=== PATIENT | female | born 1955 | race Two or more races ===

== ENCOUNTER 2023-12-24 15:31 | Emergency (ER) | payer OTHER ==
[~2023-12-24] VITALS: Ht 167.6 cm; Wt 102.9 kg
[2023-12-24 16:02] VITALS: TEMP 97.9
[2023-12-24] MEDS ORDERED: 0.9% SODIUM CHLORIDE 10 ML SYRINGE IVP ONE (16:06)
[2023-12-24] MEDS ORDERED: IOHEXOL 350 MG/ML 100 ML VIAL ONE (16:07)
[2023-12-24] MEDS ORDERED: SODIUM CHLORIDE 0.9% 100 ML ONE (16:07)
[2023-12-24 16:09] LABS: BASOPHILS % (AUTO) 0.3 % (0.0-2.0); EOSINOPHILS % (AUTO) 0.8 % (1.0-6.0); HEMATOCRIT 37.2 % (36-46); HEMOGLOBIN 11.5 g/dL (12.0-16.0); LYMPHOCYTES # (AUTO) 2.4 K/uL (1.0-4.8); LYMPHOCYTES % (AUTO) 24.2 % (22.0-44.0); MEAN CORPUSCULAR HGB CONC 30.9 G/dL (31.0-37.0); MEAN CORPUSCULAR VOLUME 78 fL (80-100); MONOCYTES # (AUTO) 0.6 K/uL (0.1-1.0); MONOCYTES % (AUTO) 6.2 % (2.0-9.0); NEUTROPHILS # (AUTO) 6.7 K/uL (1.8-7.7); NEUTROPHILS % (AUTO) 68.5 % (40.0-70.0); PLATELET COUNT (AUTO) 380 K/uL (150-450); RED BLOOD CELL COUNT(AUTO) 4.79 MIL/uL (4.00-5.20); RED CELL DISTRIBUTION WIDTH 16.5 % (11.5-14.5); WHITE BLOOD COUNT (AUTO) 9.8 K/uL (4.5-11.0)
[2023-12-24 16:16] LABS: CREATININE 0.99 mg/dL (0.60-1.30); POTASSIUM 4.1 mmol/L (3.5-5.1)
[2023-12-24 16:20] LABS: PROTHROMBIN TIME 10.9 SEC (9.4-11.6)
[2023-12-24 16:22] LABS: BILIRUBIN,TOTAL 0.6 mg/dL (0.1-1.0); TOTAL PROTEIN, SERUM 7.1 g/dL (6.4-8.2)
[2023-12-24 16:27] LABS: TROPONIN I-HIGH SENSITIVITY 16 ng/L (<51)
[2023-12-24] MEDS: ACETAMINOPHEN 325 MG TABLET PO ONE (16:40)
[2023-12-24 18:35] VITALS: BP 157/68; PULSE 76; RESP 18; O2SAT 96
== END 2023-12-24 19:35 | disposition short-term general hospital (02) ==
LOC: EMS 15:31
DX: G45.9 Transient cerebral ischemic attack, unspecified (principal); R51.9 Headache, unspecified; E11.65 Type 2 diabetes mellitus with hyperglycemia
CPT/HCPCS: 99285; 70496; 71045; 80053; 84484; 85025; 85610; 85730; 36415; 70498; 82948; 93005; 70450; Q9967; J7050